=== PATIENT | male | born 1950 | race Caucasian/White ===

== ENCOUNTER 2017-02-06 22:13 | Inpatient (IN) | payer MEDICARE, MEDICAID ==
[~2017-02-06] VITALS: Ht 172.7 cm; Wt 59.5 kg
[~2017-02-06 22:13] MED LIST: ACET-784 PO; ACET-784 PR; AMLO-512 PO; ASPI81TA2 PO; B CO1CAP4 GT; BISA10S PR; BISA5TAB12 PO; COMP5 GT; DIPH25 PO; DOCU250C91 PO; FERR-72 PO; FINA5TAB41 PO; HYDR-3965 PO; LEVA1.25 IH; LORA0.5T2 PO; LOSA25TA21 PO; MIRT15 PO; MOM30 PO; OMEP20 PO; SIMV10TA6 PO; TERA2 PO; TOPI100 PO; TRAZ150 PO; ZOLP10 GT; [UNRECOGNIZED DRUG - CODE] GT; [UNRECOGNIZED DRUG - CODE] GT
[2017-02-06 22:32] LABS: GLUCOSE,POINT OF CARE 96 MG/DL (70-110)
[2017-02-06 23:00] LABS: BASOPHILS % (AUTO) 1.3 % (0.0-2.0); EOSINOPHILS % (AUTO) 5.1 % (1.0-6.0); HEMATOCRIT 37.6 % (41-53); HEMOGLOBIN 11.5 g/dL (13.5-17.5); LYMPHOCYTES # (AUTO) 0.7 K/uL (1.0-4.8); LYMPHOCYTES % (AUTO) 12.8 % (22.0-44.0); MEAN CORPUSCULAR HEMOGLOBIN 26.2 pg (26.0-34.0); MEAN CORPUSCULAR HGB CONC 30.5 G/dL (31.0-37.0); MEAN CORPUSCULAR VOLUME 86 fL (80-100); MONOCYTES # (AUTO) 0.4 K/uL (0.1-1.0); MONOCYTES % (AUTO) 6.7 % (2.0-9.0); NEUTROPHILS % (AUTO) 74.1 % (40.0-70.0); PLATELET COUNT (AUTO) 196 K/uL (150-450); RED BLOOD CELL COUNT(AUTO) 4.37 MIL/uL (4.50-5.90); RED CELL DISTRIBUTION WIDTH 18.5 % (11.5-14.5); WHITE BLOOD COUNT (AUTO) 5.5 K/uL (4.5-11.0)
[2017-02-06 23:14] LABS: RBC MORPHOLOGY COMMENT ABNORMAL RBC MORPH
[2017-02-06 23:19] LABS: LACTIC ACID 0.4 mmol/L (0.4-2.0)
[2017-02-06 23:20] LABS: B-TYPE NATRIURETIC PEPTIDE 126 pg/mL (0-100)
[2017-02-06 23:23] LABS: ANION GAP 9 mmol/L (8-16); CARBON DIOXIDE 29 mmol/L (22-29); CHLORIDE 96 mmol/L (98-107); CREATININE 4.52 mg/dL (0.60-1.30); GLOMERULAR FILTR. RATE CALC 13 mL/min (>60); POTASSIUM 4.5 mmol/L (3.5-5.1); SODIUM SERUM 134 mmol/L (136-145); UREA NITROGEN, BLOOD 79 mg/dL (7-18)
[2017-02-06 23:28] LABS: ALANINE AMINOTRANSFERASE 32 U/L (12-78); ALBUMIN 2.9 g/dL (3.4-5.0); ASPARTATE AMINOTRANSFERASE 28 U/L (15-37); BILIRUBIN,TOTAL 0.3 mg/dL (0.1-1.0); TOTAL PROTEIN, SERUM 7.1 g/dL (6.4-8.2)
[2017-02-07] MEDS ORDERED: ONDANSETRON HCL 4 MG/2 ML VIAL IVP PRN
[2017-02-07] MEDS ORDERED: ACETAMINOPHEN 325 MG TABLET PO PRN
[2017-02-07] MEDS ORDERED: 0.9% SODIUM CHLORIDE 10 ML SYRINGE IVP PRN
[2017-02-07] MEDS ORDERED: ASPIRIN 325 MG TABLET PO ONE (00:15)
[2017-02-07] MEDS ORDERED: NITROGLYCERIN 2% (1 GM=INCH) PACKET TP ONE (00:15)
[2017-02-07] MEDS ORDERED: LEVO75 PO (01:08)
[2017-02-07] MEDS ORDERED: LISI-661 PO (01:08)
[2017-02-07] MEDS ORDERED: ESCI10TA PO (01:08)
[2017-02-07] MEDS ORDERED: FOLI1 PO (01:08)
[2017-02-07] MEDS ORDERED: METO50 PO (01:08)
[2017-02-07] MEDS ORDERED: AUD NEB (01:08)
[2017-02-07] MEDS ORDERED: PANT40TA25 PO (01:08)
[2017-02-07] MEDS ORDERED: INSU100V SQ (01:08)
[2017-02-07] MEDS ORDERED: PEG15DRO4 OU (01:08)
[2017-02-07 05:11] LABS: BASOPHILS % (AUTO) 0.9 % (0.0-2.0); EOSINOPHILS % (AUTO) 3.7 % (1.0-6.0); HEMATOCRIT 34.3 % (41-53); HEMOGLOBIN 10.6 g/dL (13.5-17.5); LYMPHOCYTES # (AUTO) 0.8 K/uL (1.0-4.8); LYMPHOCYTES % (AUTO) 16.1 % (22.0-44.0); MEAN CORPUSCULAR HEMOGLOBIN 26.5 pg (26.0-34.0); MEAN CORPUSCULAR HGB CONC 30.9 G/dL (31.0-37.0); MEAN CORPUSCULAR VOLUME 86 fL (80-100); MONOCYTES # (AUTO) 0.4 K/uL (0.1-1.0); MONOCYTES % (AUTO) 8.2 % (2.0-9.0); NEUTROPHILS # (AUTO) 3.7 K/uL (1.8-7.7); NEUTROPHILS % (AUTO) 71.1 % (40.0-70.0); PLATELET COUNT (AUTO) 180 K/uL (150-450); RED CELL DISTRIBUTION WIDTH 18.8 % (11.5-14.5); WHITE BLOOD COUNT (AUTO) 5.2 K/uL (4.5-11.0)
[2017-02-07 05:25] LABS: ALBUMIN 2.7 g/dL (3.4-5.0); BILIRUBIN,TOTAL 0.3 mg/dL (0.1-1.0); CALCIUM, TOTAL 8.5 mg/dL (8.8-10.5); CREATININE 4.78 mg/dL (0.60-1.30); POTASSIUM 4.8 mmol/L (3.5-5.1); TOTAL PROTEIN, SERUM 6.6 g/dL (6.4-8.2)
[2017-02-07 05:28] LABS: RBC MORPHOLOGY COMMENT ABNORMAL RBC MORPH
[2017-02-07 12:22] LABS: GLUCOSE,POINT OF CARE 76 MG/DL (70-110)
[2017-02-07 20:07] LABS: GLUCOSE,POINT OF CARE 59 MG/DL (70-110)
[2017-02-07] MEDS ORDERED: DEXTROSE 50%-WATER 25 GM/50 ML SYRINGE IVP ONE (20:37)
[2017-02-07 21:13] VITALS: BP 150/62
[2017-02-08 00:07] VITALS: BP 128/67
[2017-02-08] MEDS ORDERED: ALBUTEROL SULFATE 2.5 MG/0.5 ML NEB SOLUTION NEB PRN (02:00)
[2017-02-08] MEDS ORDERED: ACETAMINOPHEN 325 MG TABLET PO PRN (02:00)
[2017-02-08] MEDS ORDERED: BISACODYL 10 MG RECTAL RECTAL SUPPOSITORY PR PRN ×2 (02:00→21:45)
[2017-02-08] MEDS ORDERED: MAGNESIUM HYDROXIDE SUSPENSION 30 ML UDCUP GT PRN (02:00)
[2017-02-08] MEDS ORDERED: DiphenhydrAMINE HCL 25 MG/10 ML ELIXIR UDCUP GT PRN ×2 (02:00→02:15)
[2017-02-08] MEDS ORDERED: BISACODYL 5 MG EC TABLET PO PRN (02:00)
[2017-02-08] MEDS ORDERED: DEXTRAN 70 0.1%/HYPROMELL 0.3% 0.9 ML OPHTHALMIC SOLUTION [PF] OU PRN (02:15)
[2017-02-08] MEDS ORDERED: DEXTROSE 50%-WATER 25 GM/50 ML SYRINGE IVP PRN (03:00)
[2017-02-08] MEDS ORDERED: INSULIN ASPART 100 UNITS/ML SQ PRN (03:00)
[2017-02-08] MEDS ORDERED: ACETAMINOPHEN 325 MG TABLET GT PRN (04:00)
[2017-02-08 04:07] VITALS: BP 126/71
[2017-02-08] MEDS ORDERED: LEVOTHYROXINE SODIUM 75 MCG TABLET GT SCH (06:30)
[2017-02-08] MEDS ORDERED: FERROUS SULFATE 300 MG/5 ML LIQUID UDCUP GT SCH (08:00)
[2017-02-08 08:21] VITALS: BP 142/76
[2017-02-08] MEDS ORDERED: [UNRECOGNIZED DRUG - OTHER] GT SCH (09:00)
[2017-02-08] MEDS ORDERED: METOPROLOL TARTRATE 50 MG TABLET GT SCH (09:00)
[2017-02-08] MEDS ORDERED: LANSOPRAZOLE 30 MG SOLUBLE TABLET GT SCH (09:00)
[2017-02-08] MEDS ORDERED: TOPIRAMATE 100 MG TABLET GT SCH (09:00)
[2017-02-08] MEDS ORDERED: LISINOPRIL 10 MG TABLET GT SCH (09:00)
[2017-02-08] MEDS ORDERED: FOLIC ACID 1 MG TABLET GT SCH (09:00)
[2017-02-08] MEDS ORDERED: WATER GT SCH (09:00)
[2017-02-08] MEDS ORDERED: VITAMIN B COMP/VIT C/FOLIC ACID CAPSULE GT SCH (09:00)
[2017-02-08] MEDS ORDERED: LORazepam 0.5 MG TABLET GT SCH (09:00)
[2017-02-08] MEDS ORDERED: DOCUSATE SODIUM 250 MG CAPSULE GT SCH (09:00)
[2017-02-08] MEDS ORDERED: ESCITALOPRAM OXALATE 10 MG TABLET GT SCH (09:00)
[2017-02-08 10:36] LABS: BASOPHILS # (AUTO) 0.05 K/uL (0.00-0.20); BASOPHILS % (AUTO) 1.2 % (0.0-2.0); EOSINOPHILS % (AUTO) 5.08 % (1.0-6.0); HEMATOCRIT 37.2 % (41-53); HEMOGLOBIN 11.7 g/dL (13.5-17.5); LYMPHOCYTES # (AUTO) 0.8 K/uL (1.0-4.8); LYMPHOCYTES % (AUTO) 19.7 % (22.0-44.0); MEAN CORPUSCULAR HEMOGLOBIN 27.1 pg (26.0-34.0); MEAN CORPUSCULAR HGB CONC 31.5 G/dL (31.0-37.0); MEAN CORPUSCULAR VOLUME 86 fL (80-100); MONOCYTES # (AUTO) 0.3 K/uL (0.1-1.0); MONOCYTES % (AUTO) 7.9 % (2.0-9.0); NEUTROPHILS # (AUTO) 2.6 K/uL (1.8-7.7); NEUTROPHILS % (AUTO) 66.2 % (40.0-70.0); PLATELET COUNT (AUTO) 196 K/uL (150-450); RED BLOOD CELL COUNT(AUTO) 4.32 MIL/uL (4.50-5.90); WHITE BLOOD COUNT (AUTO) 3.9 K/uL (4.5-11.0)
[2017-02-08 10:42] LABS: RBC MORPHOLOGY COMMENT ABNORMAL RBC MORPH
[2017-02-08 10:44] LABS: CALCIUM, TOTAL 8.8 mg/dL (8.8-10.5); CREATININE 5.51 mg/dL (0.60-1.30); POTASSIUM 4.7 mmol/L (3.5-5.1)
[2017-02-08 10:48] LABS: MAGNESIUM 3.6 mg/dL (1.80-2.40); PHOSPHORUS 7.5 mg/dL (2.5-4.9)
[2017-02-08 12:02] VITALS: BP 141/52
[2017-02-08] MEDS: HYDROCODONE/ACETAMINOPHEN 5-325 MG TABLET GT PRN ×2 (12:27→17:23)
[2017-02-08] MEDS ORDERED: ALBUMIN HUMAN 25%-12.5GM/50ML IV BOTTLE IV PRN (12:30)
[2017-02-08] MEDS ORDERED: MANNITOL 25%-12.5 GM/50 ML VIAL IVP PRN (12:30)
[2017-02-08 13:38] LABS: GLUCOSE,POINT OF CARE 188 MG/DL (70-110)
[2017-02-08 13:38] LABS: GLUCOSE COMMENT 1 Juice/Food/D50 Given; GLUCOSE,POINT OF CARE 62 MG/DL (70-110)
[2017-02-08 15:02] LABS: APPEARANCE,URINE CLEAR (CLEAR); GLUCOSE, URINE (UA) 100 mg/dL (NEGATIVE); KETONES,URINE NEGATIVE (NEGATIVE); LEUKOCYTE ESTERASE ,URINE SMALL (NEGATIVE); OCCULT BLOOD,URINE SMALL (NEGATIVE); PROTEIN,URINE SEE CONFIRM (NEGATIVE)
[2017-02-08 15:23] LABS: SQUAMOUS EPITHELIAL CELL,UR Rare /LPF (None Seen); SULFOSALICYLIC ACID,URINE 3+ (Negative)
[2017-02-08] MEDS ORDERED: HEPARIN SODIUM,PORCINE 1,000 UNITS/ML VIAL IVP ONE ×3 (16:45→18:02)
[2017-02-08 17:35] VITALS: BP 109/74
[2017-02-08 19:51] VITALS: BP 138/79
[2017-02-08] MEDS ORDERED: ZOLPIDEM TARTRATE 10 MG TABLET GT SCH (21:00)
[2017-02-09 12:49] LABS: GLUCOSE,POINT OF CARE 84 MG/DL (70-110)
== END 2017-02-08 21:40 | DRG 313 ==
LOC: EMS 22:15 → 5N 02-07 18:24 → UNDOADMIN 02-07 18:55 → 5N 02-07 20:10 → 5S 02-07 20:10 → 5N 02-08 05:31 → 5S 02-08 05:31 → UNDODISIN 02-08 21:40
PROVIDERS: ADMIT Hospitalist; ATTEND Hospitalist
PROC: 5A1D00Z (ICD-10-PCS; principal; 2017-02-08)
DX: R07.89 Other chest pain (principal); N18.6 End stage renal disease; I13.2 Hypertensive heart and chronic kidney disease with heart failure and with stage 5 chronic kidney disease, or end stage renal disease; I69.354 Hemiplegia and hemiparesis following cerebral infarction affecting left non-dominant side; N02.8 Recurrent and persistent hematuria with other morphologic changes; D63.1 Anemia in chronic kidney disease; E11.22 Type 2 diabetes mellitus with diabetic chronic kidney disease; E78.00 Pure hypercholesterolemia, unspecified; G40.909 Epilepsy, unspecified, not intractable, without status epilepticus; I25.10 Atherosclerotic heart disease of native coronary artery without angina pectoris; I25.5 Ischemic cardiomyopathy; I50.9 Heart failure, unspecified; F32.9 Major depressive disorder, single episode, unspecified; K21.9 Gastro-esophageal reflux disease without esophagitis; M06.9 Rheumatoid arthritis, unspecified; N31.9 Neuromuscular dysfunction of bladder, unspecified; N40.0 Benign prostatic hyperplasia without lower urinary tract symptoms; Z74.01 Bed confinement status; Z93.1 Gastrostomy status; Z83.3 Family history of diabetes mellitus; Z98.61 Coronary angioplasty status; Z99.2 Dependence on renal dialysis; Z88.2 Allergy status to sulfonamides; Z87.440 Personal history of urinary (tract) infections; Z79.899 Other long term (current) drug therapy; Z79.82 Long term (current) use of aspirin; Z79.1 Long term (current) use of non-steroidal anti-inflammatories (NSAID); Z82.49 Family history of ischemic heart disease and other diseases of the circulatory system
CPT/HCPCS: 82962; 83605; 83735; 84100; 87081; 87086; 87340; 90935; 93005; 99285; J1644

== ENCOUNTER 2017-07-08 18:58 | Inpatient (IN) | payer MEDICARE, OTHER ==
[~2017-07-08] VITALS: Ht 167.6 cm; Wt 63.6 kg
[~2017-07-08 18:58] MED LIST changes: -ACET-784 PO; -ACET-784 PR; -AMLO-512 PO; -ASPI81TA2 PO; +AUD NEB; -BISA10S PR; -BISA5TAB12 PO; -COMP5 GT; -DIPH25 PO; +EPOE4000 SQ; +ESCI10TA PO; -FINA5TAB41 PO; +FOLI1 PO; -HYDR-3965 PO; +HYDR-4061 PO; +INSU100V SQ; -LEVA1.25 IH; +LEVO75 PO; -LOSA25TA21 PO; +METO50 PO; -MIRT15 PO; -MOM30 PO; -OMEP20 PO; +PANT40TA25 PO; +PEG15DRO4 OU; -SIMV10TA6 PO; -TERA2 PO; -TOPI100 PO; +TOPI100T37 PO; -TRAZ150 PO; -ZOLP10 GT; +ZOLP10TA7 GT; -[UNRECOGNIZED DRUG - CODE] GT; -[UNRECOGNIZED DRUG - CODE] GT
[2017-07-08] MEDS ORDERED: OMEP20CA10 GT (19:09)
[2017-07-08 19:46] LABS: BASOPHILS # (AUTO) 0.03 K/uL (0.00-0.20); BASOPHILS % (AUTO) 0.7 % (0.0-2.0); EOSINOPHILS % (AUTO) 0.01 % (1.0-6.0); LYMPHOCYTES # (AUTO) 0.7 K/uL (1.0-4.8); LYMPHOCYTES % (AUTO) 17.8 % (22.0-44.0); MEAN CORPUSCULAR HEMOGLOBIN 26.4 pg (26.0-34.0); MEAN CORPUSCULAR HGB CONC 32.5 G/dL (31.0-37.0); MEAN CORPUSCULAR VOLUME 81 fL (80-100); MONOCYTES # (AUTO) 0.2 K/uL (0.1-1.0); MONOCYTES % (AUTO) 5.7 % (2.0-9.0); NEUTROPHILS # (AUTO) 3.1 K/uL (1.8-7.7); NEUTROPHILS % (AUTO) 75.8 % (40.0-70.0); PLATELET COUNT (AUTO) 255 K/uL (150-450); RED CELL DISTRIBUTION WIDTH 17.4 % (11.5-14.5)
[2017-07-08 19:49] LABS: GLUCOSE,POINT OF CARE 113 MG/DL (70-110)
[2017-07-08 19:58] LABS: PROTHROMBIN TIME 10.7 SEC (9.4-11.6)
[2017-07-08 20:08] LABS: HEMOGLOBIN 6.6 g/dL (13.5-17.5)
[2017-07-08 20:09] LABS: HEMATOCRIT 20.3 % (41-53)
[2017-07-08 20:35] LABS: B-TYPE NATRIURETIC PEPTIDE 726 pg/mL (0-100)
[2017-07-08 20:48] LABS: APPEARANCE,URINE CLOUDY (CLEAR); GLUCOSE, URINE (UA) NEGATIVE (NEGATIVE); KETONES,URINE NEGATIVE (NEGATIVE); LEUKOCYTE ESTERASE ,URINE MODERATE (NEGATIVE); OCCULT BLOOD,URINE LARGE (NEGATIVE); PH,URINE 7.5 (5.0-8.0); PROTEIN,URINE SEE CONFIRM (NEGATIVE)
[2017-07-08 20:49] LABS: ADD UA MICROSCOPIC YES
[2017-07-08 21:01] LABS: ANION GAP 15 mmol/L (8-16); CALCIUM, TOTAL 8.9 mg/dL (8.8-10.5); CARBON DIOXIDE 27 mmol/L (22-29); CHLORIDE 89 mmol/L (98-107); CREATININE 6.57 mg/dL (0.60-1.30); GLOMERULAR FILTR. RATE CALC 8 mL/min (>60); POTASSIUM 4.1 mmol/L (3.5-5.1); SODIUM SERUM 131 mmol/L (136-145)
[2017-07-08 21:04] LABS: ALANINE AMINOTRANSFERASE 47 U/L (12-78); ALBUMIN 2.7 g/dL (3.4-5.0); ASPARTATE AMINOTRANSFERASE 32 U/L (15-37); BILIRUBIN,TOTAL 0.3 mg/dL (0.1-1.0); CREATINE KINASE, TOTAL 43 U/L (39-308); TOTAL PROTEIN, SERUM 7.2 g/dL (6.4-8.2)
[2017-07-08 21:08] LABS: SULFOSALICYLIC ACID,URINE 2+ (Negative)
[2017-07-08 21:08] LABS: RBC MORPHOLOGY COMMENT ABNORMAL RBC MORPH
[2017-07-08 21:09] LABS: SQUAMOUS EPITHELIAL CELL,UR Rare /LPF (None Seen)
[2017-07-08 21:14] LABS: RBC,URINE >100 /HPF (0-2)
[2017-07-08 21:16] LABS: UREA NITROGEN, BLOOD 235 mg/dL (7-18)
[2017-07-08] MEDS ORDERED: ONDANSETRON HCL 4 MG/2 ML VIAL IVP ONE (21:30)
[2017-07-08] MEDS ORDERED: FAMOTIDINE 10 MG/ML 2 ML VIAL IVP ONE (21:30)
[2017-07-08] MEDS ORDERED: CefTRIAXone 1 GM/DEXTROSE 50 ML IV ONE (22:00)
[2017-07-08] MEDS ORDERED: 0.9% SODIUM CHLORIDE 10 ML SYRINGE IVP PRN ×2 (22:00→22:30)
[2017-07-08] MEDS ORDERED: HydrALAZINE HCL 20 MG/ML VIAL IVP PRN (22:15)
[2017-07-08] MEDS ORDERED: IPRATROPIUM BROMIDE 0.5 MG/2.5 ML NEB SOLUTION NEB PRN (22:30)
[2017-07-08] MEDS ORDERED: ALBUTEROL SULFATE 2.5 MG/0.5 ML NEB SOLUTION NEB PRN (22:30)
[2017-07-08] MEDS ORDERED: SODIUM CHLORIDE 0.9% 250 ML IV ONE (23:15)
[2017-07-08 23:25] VITALS: BP 180/87
[2017-07-08 23:45] VITALS: BP 175/85
[2017-07-09] VITALS (20 sets, daily range): BP systolic 112–197; BP diastolic 66–101
[2017-07-09] MEDS: HYDROCODONE/ACETAMINOPHEN 5-325 MG TABLET PO PRN ×3 (00:04→12:34)
[2017-07-09 06:49] LABS: HEMATOCRIT 27.6 % (41-53); HEMOGLOBIN 9.2 g/dL (13.5-17.5); MEAN CORPUSCULAR HEMOGLOBIN 27.8 pg (26.0-34.0); MEAN CORPUSCULAR HGB CONC 33.4 G/dL (31.0-37.0); MEAN CORPUSCULAR VOLUME 83 fL (80-100); PLATELET COUNT (AUTO) 240 K/uL (150-450); RED BLOOD CELL COUNT(AUTO) 3.31 MIL/uL (4.50-5.90); RED CELL DISTRIBUTION WIDTH 15.4 % (11.5-14.5); WHITE BLOOD COUNT (AUTO) 3.9 K/uL (4.5-11.0)
[2017-07-09 07:17] LABS: ALBUMIN 2.6 g/dL (3.4-5.0); BILIRUBIN,TOTAL 0.5 mg/dL (0.1-1.0); CALCIUM, TOTAL 8.6 mg/dL (8.8-10.5); CREATININE 6.52 mg/dL (0.60-1.30); PHOSPHORUS 7.7 mg/dL (2.5-4.9); POTASSIUM 4.5 mmol/L (3.5-5.1); TOTAL PROTEIN, SERUM 7.1 g/dL (6.4-8.2)
[2017-07-09 07:34] LABS: MAGNESIUM 4.3 mg/dL (1.80-2.40)
[2017-07-09] MEDS: LEVOTHYROXINE SODIUM 75 MCG TABLET PO SCH (08:19)
[2017-07-09] MEDS: FOLIC ACID 1 MG TABLET PO SCH (08:49)
[2017-07-09] MEDS: PANTOPRAZOLE SODIUM 40 MG/VIAL IVP SCH ×2 (08:49→20:31)
[2017-07-09] MEDS: METOPROLOL TARTRATE 50 MG TABLET PO SCH ×2 (08:50→20:31)
[2017-07-09] MEDS: ESCITALOPRAM OXALATE 10 MG TABLET PO SCH (08:50)
[2017-07-09] MEDS: VITAMIN B COMP/VIT C/FOLIC ACID CAPSULE PO SCH (08:50)
[2017-07-09 09:05] LABS: HEMATOCRIT 24.5 % (41-53); HEMOGLOBIN 8.2 g/dL (13.5-17.5)
[2017-07-09 09:37] LABS: LYMPHOCYTES % (MANUAL) 16 % (22-44); TOTAL CELLS COUNTED 100
[2017-07-09 09:39] LABS: RBC MORPHOLOGY COMMENT ABNORMAL R
[2017-07-09 12:46] LABS: VITAMIN B12 LEVEL 1252 pg/mL (211-911)
[2017-07-09] MEDS ORDERED: SODIUM CHLORIDE 0.9% 1,000 ML IV ONE (12:53)
[2017-07-09 15:40] LABS: HEMATOCRIT 28.1 % (41-53); HEMOGLOBIN 9.5 g/dL (13.5-17.5)
[2017-07-09] MEDS: ONDANSETRON HCL 4 MG/2 ML VIAL IVP PRN ×2 (16:00→20:45)
[2017-07-09] MEDS ORDERED: 0.9% SODIUM CHLORIDE 250 ML BAG IV ONE (17:54)
[2017-07-09] MEDS ORDERED: SODIUM BICARBONATE [ADULT] 8.4% 50 MEQ/50 ML SYRINGE IVP ONE (17:54)
[2017-07-09] MEDS ORDERED: EPINEPHrine 1:10,000 [1 MG/10 ML] SYRINGE IVP ONE (17:54)
[2017-07-09] MEDS ORDERED: DOPamine HCL/D5W 400 MG/250 ML IV BAG IV ONE (17:54)
[2017-07-09] MEDS ORDERED: ATROPINE SULFATE 0.1 MG/ML 10 ML SYRINGE IVP ONE (17:54)
[2017-07-09] MEDS: INSULIN ASPART 100 UNITS/ML SQ PRN ×2 (18:10→23:35)
[2017-07-09 19:57] LABS: GLUCOSE,POINT OF CARE 170 MG/DL (70-110)
[2017-07-09 21:17] LABS: HEMATOCRIT 30.3 % (41-53); HEMOGLOBIN 10.1 g/dL (13.5-17.5)
[2017-07-09 21:26] LABS: CALCIUM, TOTAL 9.3 mg/dL (8.8-10.5); CREATININE 4.19 mg/dL (0.60-1.30); POTASSIUM 3.8 mmol/L (3.5-5.1)
[2017-07-09] MEDS ORDERED: CefTRIAXone 1 GM/DEXTROSE 50 ML IV SCH (22:00)
[2017-07-09] MEDS ORDERED: SODIUM CHLORIDE 0.9% 250 ML IV ONE (23:07)
[2017-07-10 01:57] LABS: HEMATOCRIT 29.7 % (41-53); HEMOGLOBIN 9.9 g/dL (13.5-17.5)
[2017-07-10] MEDS: ONDANSETRON HCL 4 MG/2 ML VIAL IVP PRN (02:08)
[2017-07-10 04:42] VITALS: BP 160/70
[2017-07-10] MEDS: LEVOTHYROXINE SODIUM 75 MCG TABLET PO SCH (05:57)
[2017-07-10] MEDS: INSULIN ASPART 100 UNITS/ML SQ PRN ×2 (06:05→11:40)
[2017-07-10] MEDS: PANTOPRAZOLE SODIUM 40 MG/VIAL IVP SCH ×2 (07:55→21:41)
[2017-07-10] MEDS: FOLIC ACID 1 MG TABLET PO SCH (07:55)
[2017-07-10] MEDS: METOPROLOL TARTRATE 50 MG TABLET PO SCH ×2 (07:55→21:00)
[2017-07-10] MEDS: VITAMIN B COMP/VIT C/FOLIC ACID CAPSULE PO SCH (07:55)
[2017-07-10] MEDS: ESCITALOPRAM OXALATE 10 MG TABLET PO SCH (07:55)
[2017-07-10 08:07] VITALS: BP 162/98
[2017-07-10 08:09] LABS: HEMATOCRIT 29.3 % (41-53); HEMOGLOBIN 9.8 g/dL (13.5-17.5)
[2017-07-10] MEDS ORDERED: PIPERACILLIN SODIUM/TAZOBACTAM 0.75 GM in DEXTROSE 5%-WATER 50 ML IV PRN (09:45)
[2017-07-10 11:20] VITALS: BP 101/64
[2017-07-10] MEDS: DEXTROSE 5%-0.45% SODIUM CHL 1,000 ML IV SCH (11:21)
[2017-07-10] MEDS: PIPERACILLIN SODIUM/TAZOBACTAM 2.25 GM in DEXTROSE 5%-WATER 50 ML IV SCH ×2 (11:22→21:42)
[2017-07-10] MEDS: EPOETIN ALFA 10,000 UNITS/ML VIAL SQ SCH (11:36)
[2017-07-10] MEDS: HYDROCODONE/ACETAMINOPHEN 5-325 MG TABLET PO PRN (12:10)
[2017-07-10] MEDS: ACETAMINOPHEN 325 MG TABLET PO PRN (12:27)
[2017-07-10 13:06] LABS: HEMATOCRIT 30.2 % (41-53); HEMOGLOBIN 10.1 g/dL (13.5-17.5); MEAN CORPUSCULAR HEMOGLOBIN 27.8 pg (26.0-34.0); MEAN CORPUSCULAR HGB CONC 33.5 G/dL (31.0-37.0); MEAN CORPUSCULAR VOLUME 83 fL (80-100); PLATELET COUNT (AUTO) 248 K/uL (150-450); RED BLOOD CELL COUNT(AUTO) 3.64 MIL/uL (4.50-5.90); RED CELL DISTRIBUTION WIDTH 15.9 % (11.5-14.5); WHITE BLOOD COUNT (AUTO) 6.3 K/uL (4.5-11.0)
[2017-07-10 13:28] LABS: BAND NEUTROPHILS % (MANUAL) 41 % (1-5); LYMPHOCYTES % (MANUAL) 11 % (22-44); TOTAL CELLS COUNTED 100
[2017-07-10 13:29] LABS: RBC MORPHOLOGY COMMENT NORMAL RBC MORPH
[2017-07-10 13:42] LABS: APPEARANCE,URINE CLOUDY (CLEAR); GLUCOSE, URINE (UA) NEGATIVE (NEGATIVE); KETONES,URINE NEGATIVE (NEGATIVE); LEUKOCYTE ESTERASE ,URINE TRACE (NEGATIVE); OCCULT BLOOD,URINE SMALL (NEGATIVE); PROTEIN,URINE SEE CONFIRM (NEGATIVE)
[2017-07-10 13:55] LABS: ADD UA MICROSCOPIC YES; SULFOSALICYLIC ACID,URINE 3+ (Negative)
[2017-07-10 13:57] LABS: AMORPHOUS SEDIMENT,UR Few /LPF (None Seen)
[2017-07-10 15:39] VITALS: BP 125/70
[2017-07-10 18:09] LABS: ALLEN TEST, BLOOD GAS Positive; TEMPERATURE, FAHRENHEIT, BG 98.6 FAHREN (96.0-98.6)
[2017-07-10 18:10] LABS: ABG A-A DIFF O2 478.9 mmHg (10-20.0); ABG BASE EXCESS -12.1 mmol/L (-2.0-3.0); ABG HCO3 15.1 mmol/L (22.0-26.0); ABG OXYHEMOGLOBIN 97.9 % (94.0-100.0); ABG PCO2 56 mmHg (35-45); ABG PH 7.112 (7.35-7.450)
[2017-07-10 18:35] LABS: HEMATOCRIT 27.3 % (41-53); MEAN CORPUSCULAR HEMOGLOBIN 27.7 pg (26.0-34.0); MEAN CORPUSCULAR HGB CONC 32.8 G/dL (31.0-37.0); MEAN CORPUSCULAR VOLUME 84 fL (80-100); PLATELET COUNT (AUTO) 290 K/uL (150-450); RED BLOOD CELL COUNT(AUTO) 3.23 MIL/uL (4.50-5.90); RED CELL DISTRIBUTION WIDTH 16.4 % (11.5-14.5); WHITE BLOOD COUNT (AUTO) 12.9 K/uL (4.5-11.0)
[2017-07-10 18:48] LABS: CALCIUM, TOTAL 8.3 mg/dL (8.8-10.5); CREATININE 4.31 mg/dL (0.60-1.30); POTASSIUM 3.9 mmol/L (3.5-5.1)
[2017-07-10] MEDS: PHENYLEPHRINE 200 MG/D5%-WATER 250 ML IV PRN (19:00)
[2017-07-10 19:19] LABS: BAND NEUTROPHILS % (MANUAL) 54 % (1-5); LYMPHOCYTES % (MANUAL) 10 % (22-44); TOTAL CELLS COUNTED 100
[2017-07-10 19:31] LABS: GLUCOSE,POINT OF CARE 91 MG/DL (70-110)
[2017-07-10 19:58] LABS: ABG BASE EXCESS -7.3 mmol/L (-2.0-3.0); ABG OXYHEMOGLOBIN 97.8 % (94.0-100.0); ABG PCO2 37 mmHg (35-45); ABG PH 7.324 (7.35-7.450); TEMPERATURE, FAHRENHEIT, BG 98.6 FAHREN (96.0-98.6)
[2017-07-10 19:59] LABS: ABG A-A DIFF O2 532.4 mmHg (10-20.0)
[2017-07-10 20:00] VITALS: BP 122/76
[2017-07-10 20:13] LABS: GLUCOSE,POINT OF CARE 109 MG/DL (70-110)
[2017-07-10 20:14] LABS: GLUCOSE COMMENT 1 Received Meds; GLUCOSE,POINT OF CARE 150 MG/DL (70-110)
[2017-07-10 20:14] LABS: GLUCOSE COMMENT 1 Received Meds; GLUCOSE,POINT OF CARE 192 MG/DL (70-110)
[2017-07-10 20:14] LABS: GLUCOSE COMMENT 1 Received Meds; GLUCOSE,POINT OF CARE 240 MG/DL (70-110)
[2017-07-10] MEDS ORDERED: VANCOMYCIN HCL 1 GM/D5% WATER 200 ML IV ONE (20:15)
[2017-07-10] MEDS ORDERED: SODIUM CHLORIDE 0.9% 100 ML ONE (20:20)
[2017-07-10] MEDS ORDERED: IOVERSOL 350 MG/ML 100 ML VIAL ONE (20:20)
[2017-07-10] MEDS ORDERED: SODIUM CHLORIDE 0.9% 250 ML IV ONE (21:38)
[2017-07-11] VITALS: BP 123/44
[2017-07-11] MEDS: PROPOFOL 1000 MG/ISO-OSM 100 ML IV PRN ×2 (00:35→08:15)
[2017-07-11 01:22] LABS: GLUCOSE,POINT OF CARE 132 MG/DL (70-110)
[2017-07-11] MEDS: PIPERACILLIN SODIUM/TAZOBACTAM 2.25 GM in DEXTROSE 5%-WATER 50 ML IV SCH ×3 (01:37→17:39)
[2017-07-11 02:09] LABS: HEMATOCRIT 24.9 % (41-53); HEMOGLOBIN 8.3 g/dL (13.5-17.5)
[2017-07-11 04:00] VITALS: BP 113/37
[2017-07-11 04:56] LABS: HEMATOCRIT 25.3 % (41-53); HEMOGLOBIN 8.4 g/dL (13.5-17.5); MEAN CORPUSCULAR HEMOGLOBIN 28.1 pg (26.0-34.0); MEAN CORPUSCULAR HGB CONC 33.4 G/dL (31.0-37.0); MEAN CORPUSCULAR VOLUME 84 fL (80-100); PLATELET COUNT (AUTO) 211 K/uL (150-450); RED CELL DISTRIBUTION WIDTH 16.3 % (11.5-14.5); WHITE BLOOD COUNT (AUTO) 12.7 K/uL (4.5-11.0)
[2017-07-11 05:01] LABS: CALCIUM, TOTAL 8.4 mg/dL (8.8-10.5); CREATININE 4.65 mg/dL (0.60-1.30); MAGNESIUM 2.8 mg/dL (1.80-2.40); PHOSPHORUS 6.7 mg/dL (2.5-4.9); POTASSIUM 4.5 mmol/L (3.5-5.1); THYROID STIMULATING HORMONE 1.22 uIU/mL (0.36-3.74)
[2017-07-11] MEDS: LEVOTHYROXINE SODIUM 75 MCG TABLET PO SCH (05:50)
[2017-07-11 05:57] LABS: GLUCOSE,POINT OF CARE 102 MG/DL (70-110)
[2017-07-11 07:35] LABS: BAND NEUTROPHILS % (MANUAL) 47 % (1-5); LYMPHOCYTES % (MANUAL) 8 % (22-44); MYELOCYTES % 1 % (0-0); TOTAL CELLS COUNTED 100
[2017-07-11 08:00] VITALS: BP 97/51
[2017-07-11] MEDS: FOLIC ACID 1 MG TABLET PO SCH (08:16)
[2017-07-11] MEDS: VITAMIN B COMP/VIT C/FOLIC ACID CAPSULE PO SCH (08:16)
[2017-07-11] MEDS: PANTOPRAZOLE SODIUM 40 MG/VIAL IVP SCH ×2 (08:16→20:20)
[2017-07-11] MEDS: ACETAMINOPHEN 325 MG TABLET PO PRN ×2 (08:17→13:55)
[2017-07-11] MEDS: METOPROLOL TARTRATE 50 MG TABLET PO SCH ×2 (08:18→20:11)
[2017-07-11 08:40] LABS: ABG BASE EXCESS -5.1 mmol/L (-2.0-3.0); ABG HCO3 20.6 mmol/L (22.0-26.0); ABG PCO2 38 mmHg (35-45); ABG PH 7.351 (7.35-7.450); TEMPERATURE, FAHRENHEIT, BG 98.6 FAHREN (96.0-98.6)
[2017-07-11 08:41] LABS: ABG A-A DIFF O2 301.7 mmHg (10-20.0)
[2017-07-11 08:44] LABS: HEMATOCRIT 24.3 % (41-53); HEMOGLOBIN 8.2 g/dL (13.5-17.5)
[2017-07-11] MEDS: DEXTROSE 5%-0.45% SODIUM CHL 1,000 ML IV SCH (09:34)
[2017-07-11] MEDS: -ZOSYN NOTE- MISC SCH (09:40)
[2017-07-11 12:00] VITALS: BP 95/50
[2017-07-11 14:44] LABS: HEMATOCRIT 23.7 % (41-53)
[2017-07-11 16:00] VITALS: BP 90/31
[2017-07-11 17:58] LABS: GLUCOSE,POINT OF CARE 117 MG/DL (70-110)
[2017-07-11] MEDS ORDERED: VANCOMYCIN HCL 1 GM/D5% WATER 200 ML IV PRN (18:00)
[2017-07-11 18:08] LABS: GLUCOSE,POINT OF CARE 121 MG/DL (70-110)
[2017-07-11] MEDS: VASOPRESSIN 100 UNITS in DEXTROSE 5%-WATER 245 ML IV PRN (18:19)
[2017-07-11 19:54] LABS: HEMATOCRIT 24.9 % (41-53); HEMOGLOBIN 8.3 g/dL (13.5-17.5)
[2017-07-11 20:00] VITALS: BP 112/34
[2017-07-11] MEDS ORDERED: SODIUM CHLORIDE 0.9% 250 ML IV ONE (22:34)
[2017-07-11] MEDS ORDERED: SODIUM CHLORIDE 0.9% 500 ML IV ONE (22:34)
[2017-07-11] MEDS: INSULIN ASPART 100 UNITS/ML SQ PRN (23:26)
[2017-07-11] MEDS: PHENYLEPHRINE 200 MG/D5%-WATER 250 ML IV PRN (23:34)
[2017-07-12] VITALS (15 sets, daily range): BP systolic 93–118; BP diastolic 21–60
[2017-07-12] MEDS: PIPERACILLIN SODIUM/TAZOBACTAM 2.25 GM in DEXTROSE 5%-WATER 50 ML IV SCH ×3 (01:29→18:00)
[2017-07-12] MEDS: INSULIN ASPART 100 UNITS/ML SQ PRN ×3 (05:17→23:37)
[2017-07-12 05:28] LABS: HEMATOCRIT 24.4 % (41-53); MEAN CORPUSCULAR HGB CONC 32.8 G/dL (31.0-37.0); MEAN CORPUSCULAR VOLUME 85 fL (80-100); PLATELET COUNT (AUTO) 211 K/uL (150-450); RED BLOOD CELL COUNT(AUTO) 2.87 MIL/uL (4.50-5.90); RED CELL DISTRIBUTION WIDTH 16.8 % (11.5-14.5); WHITE BLOOD COUNT (AUTO) 26.9 K/uL (4.5-11.0)
[2017-07-12 05:45] LABS: CALCIUM, TOTAL 8.2 mg/dL (8.8-10.5); CREATININE 5.65 mg/dL (0.60-1.30); MAGNESIUM 3.1 mg/dL (1.80-2.40); POTASSIUM 4.7 mmol/L (3.5-5.1)
[2017-07-12] MEDS: LEVOTHYROXINE SODIUM 75 MCG TABLET PO SCH (05:59)
[2017-07-12] MEDS ORDERED: ATROPINE SULFATE 0.1 MG/ML 10 ML SYRINGE IVP ONE ×2 (06:12→06:15)
[2017-07-12 06:15] LABS: PHOSPHORUS 9.2 mg/dL (2.5-4.9)
[2017-07-12 06:39] LABS: BAND NEUTROPHILS % (MANUAL) 39 % (1-5); LYMPHOCYTES % (MANUAL) 6 % (22-44); TOTAL CELLS COUNTED 100
[2017-07-12 06:40] LABS: RBC MORPHOLOGY COMMENT NORMAL RBC MORPH
[2017-07-12 07:23] LABS: ABG BASE EXCESS -18.4 mmol/L (-2.0-3.0); ABG PCO2 45 mmHg (35-45)
[2017-07-12 07:24] LABS: ABG OXYHEMOGLOBIN 91.4 % (94.0-100.0)
[2017-07-12 07:25] LABS: ABG A-A DIFF O2 190.5 mmHg (10-20.0)
[2017-07-12] MEDS ORDERED: SODIUM BICARBONATE [ADULT] 8.4% 50 MEQ/50 ML SYRINGE IVP ONE ×3 (07:33→18:00)
[2017-07-12] MEDS ORDERED: VANCOMYCIN HCL 1 GM/D5% WATER 200 ML IV ONE (08:00)
[2017-07-12 08:23] LABS: GLUCOSE,POINT OF CARE 158 MG/DL (70-110)
[2017-07-12 08:27] LABS: GLUCOSE COMMENT 1 Received Meds; GLUCOSE,POINT OF CARE 199 MG/DL (70-110)
[2017-07-12] MEDS: FOLIC ACID 1 MG TABLET PO SCH (08:27)
[2017-07-12] MEDS: VITAMIN B COMP/VIT C/FOLIC ACID CAPSULE PO SCH (08:27)
[2017-07-12] MEDS: PANTOPRAZOLE SODIUM 40 MG/VIAL IVP SCH ×2 (08:27→20:13)
[2017-07-12] MEDS: SODIUM BICARBONATE 150 MEQ in DEXTROSE 5%-WATER 1,000 ML IV SCH (08:28)
[2017-07-12] MEDS: -ZOSYN NOTE- MISC SCH (09:00)
[2017-07-12] MEDS: METOPROLOL TARTRATE 50 MG TABLET PO SCH ×2 (09:00→19:42)
[2017-07-12 09:17] LABS: ABG PH 7.047 (7.35-7.450)
[2017-07-12] MEDS ORDERED: POTASSIUM CHLORIDE 20 MEQ in NXSTAGE RFP-402 K0/CA3 5,000 ML IRRIG PRN (09:45)
[2017-07-12] MEDS ORDERED: AMIODARONE HCL 360 MG in DEXTROSE 5%-WATER 242.8 ML IV ONE (12:20)
[2017-07-12] MEDS: NOREPINEPHRINE BITARTRATE 16 MG in DEXTROSE 5%-WATER 234 ML IV PRN (12:40)
[2017-07-12] MEDS: PHENYLEPHRINE HCL 800 MG in DEXTROSE 5%-WATER 170 ML IV PRN (12:41)
[2017-07-12 17:25] LABS: TEMPERATURE, FAHRENHEIT, BG 95.7 FAHREN (96.0-98.6)
[2017-07-12 17:26] LABS: ABG PCO2 38 mmHg (35-45)
[2017-07-12 17:27] LABS: ABG BASE EXCESS -15.9 mmol/L (-2.0-3.0); ABG HCO3 12.7 mmol/L (22.0-26.0); ABG OXYHEMOGLOBIN 94.4 % (94.0-100.0)
[2017-07-12 17:28] LABS: ABG A-A DIFF O2 182.9 mmHg (10-20.0)
[2017-07-12 17:34] LABS: CALCIUM, TOTAL 8.2 mg/dL (8.8-10.5); CREATININE 4.19 mg/dL (0.60-1.30); MAGNESIUM 2.8 mg/dL (1.80-2.40); PHOSPHORUS 8.1 mg/dL (2.5-4.9); POTASSIUM 4.5 mmol/L (3.5-5.1)
[2017-07-12] MEDS ORDERED: SODIUM CHLORIDE 0.9% 250 ML IV ONE (17:49)
[2017-07-12 18:03] LABS: ABG PH 7.151 (7.35-7.450)
[2017-07-12 18:12] LABS: HEMATOCRIT 23.2 % (41-53); HEMOGLOBIN 7.5 g/dL (13.5-17.5); MEAN CORPUSCULAR HEMOGLOBIN 27.5 pg (26.0-34.0); MEAN CORPUSCULAR HGB CONC 32.2 G/dL (31.0-37.0); MEAN CORPUSCULAR VOLUME 85 fL (80-100); PLATELET COUNT (AUTO) 189 K/uL (150-450); RED BLOOD CELL COUNT(AUTO) 2.71 MIL/uL (4.50-5.90); RED CELL DISTRIBUTION WIDTH 16.7 % (11.5-14.5); WHITE BLOOD COUNT (AUTO) 18.5 K/uL (4.5-11.0)
[2017-07-12] MEDS ORDERED: AMIODARONE HCL 540 MG in DEXTROSE 5%-WATER 239.2 ML IV ONE (18:30)
[2017-07-12 19:30] LABS: BAND NEUTROPHILS % (MANUAL) 22 % (1-5); LYMPHOCYTES % (MANUAL) 3 % (22-44); TOTAL CELLS COUNTED 100
[2017-07-12] MEDS ORDERED: SODIUM CHLORIDE 0.9% 500 ML IV ONE (20:38)
[2017-07-12] MEDS: VASOPRESSIN 100 UNITS in DEXTROSE 5%-WATER 245 ML IV PRN (21:07)
[2017-07-12 23:50] LABS: CALCIUM, TOTAL 8.2 mg/dL (8.8-10.5); CREATININE 3.51 mg/dL (0.60-1.30); POTASSIUM 4.7 mmol/L (3.5-5.1)
[2017-07-13] VITALS (9 sets, daily range): BP systolic 31–121; BP diastolic 27–60
[2017-07-13] MEDS: SODIUM BICARBONATE 150 MEQ in DEXTROSE 5%-WATER 1,000 ML IV SCH ×2 (00:21→17:37)
[2017-07-13] MEDS ORDERED: SODIUM CHLORIDE 0.9% 500 ML IV ONE (00:25)
[2017-07-13] MEDS: PIPERACILLIN SODIUM/TAZOBACTAM 2.25 GM in DEXTROSE 5%-WATER 50 ML IV SCH ×3 (01:59→17:39)
[2017-07-13] MEDS: INSULIN ASPART 100 UNITS/ML SQ PRN (04:54)
[2017-07-13 04:57] LABS: GLUCOSE,POINT OF CARE 125 MG/DL (70-110)
[2017-07-13 04:57] LABS: GLUCOSE,POINT OF CARE 115 MG/DL (70-110)
[2017-07-13 04:57] LABS: GLUCOSE COMMENT 1 Received Meds; GLUCOSE,POINT OF CARE 165 MG/DL (70-110)
[2017-07-13 04:57] LABS: GLUCOSE,POINT OF CARE 108 MG/DL (70-110)
[2017-07-13] MEDS: LEVOTHYROXINE SODIUM 75 MCG TABLET PO SCH (05:57)
[2017-07-13 06:22] LABS: HEMATOCRIT 34.8 % (41-53); HEMOGLOBIN 11.4 g/dL (13.5-17.5); MEAN CORPUSCULAR HEMOGLOBIN 28.6 pg (26.0-34.0); MEAN CORPUSCULAR HGB CONC 32.7 G/dL (31.0-37.0); MEAN CORPUSCULAR VOLUME 87 fL (80-100); PLATELET COUNT (AUTO) 143 K/uL (150-450); RED BLOOD CELL COUNT(AUTO) 3.98 MIL/uL (4.50-5.90); RED CELL DISTRIBUTION WIDTH 16.8 % (11.5-14.5); WHITE BLOOD COUNT (AUTO) 11.9 K/uL (4.5-11.0)
[2017-07-13 06:26] LABS: CALCIUM, TOTAL 8.2 mg/dL (8.8-10.5); CREATININE 2.97 mg/dL (0.60-1.30); MAGNESIUM 2.5 mg/dL (1.80-2.40); PHOSPHORUS 6.6 mg/dL (2.5-4.9)
[2017-07-13 07:06] LABS: POTASSIUM 4.5 mmol/L (3.5-5.1)
[2017-07-13] MEDS: METOPROLOL TARTRATE 50 MG TABLET PO SCH ×2 (07:31→21:00)
[2017-07-13 07:48] LABS: BAND NEUTROPHILS % (MANUAL) 15 % (1-5); LYMPHOCYTES % (MANUAL) 5 % (22-44); RBC MORPHOLOGY COMMENT NORMAL RBC MORPH; TOTAL CELLS COUNTED 100
[2017-07-13] MEDS: -ZOSYN NOTE- MISC SCH (09:00)
[2017-07-13] MEDS: FOLIC ACID 1 MG TABLET PO SCH (09:47)
[2017-07-13] MEDS: VITAMIN B COMP/VIT C/FOLIC ACID CAPSULE PO SCH (09:47)
[2017-07-13] MEDS: EPOETIN ALFA 10,000 UNITS/ML VIAL SQ SCH (09:47)
[2017-07-13] MEDS: PANTOPRAZOLE SODIUM 40 MG/VIAL IVP SCH ×2 (09:47→21:10)
[2017-07-13 11:09] LABS: ABG A-A DIFF O2 205.7 mmHg (10-20.0); ABG BASE EXCESS -19.8 mmol/L (-2.0-3.0); ABG HCO3 10.2 mmol/L (22.0-26.0); ABG OXYHEMOGLOBIN 90.3 % (94.0-100.0); ABG PCO2 40 mmHg (35-45)
[2017-07-13 11:10] LABS: ABG PH 7.044 (7.35-7.450)
[2017-07-13] MEDS: DEXTROSE 50%-WATER 25 GM/50 ML SYRINGE IVP PRN ×3 (12:00→21:10)
[2017-07-13] MEDS ORDERED: AMIODARONE HCL 750 MG in DEXTROSE 5%-WATER 485 ML IV SCH (12:30)
[2017-07-13 13:42] LABS: GLUCOSE COMMENT 1 Juice/Food/D50 Given; GLUCOSE,POINT OF CARE 32 MG/DL (70-110)
[2017-07-13] MEDS ORDERED: SODIUM BICARBONATE [ADULT] 8.4% 50 MEQ/50 ML SYRINGE IVP ONE ×2 (14:43→14:45)
[2017-07-13] MEDS: NOREPINEPHRINE BITARTRATE 16 MG in DEXTROSE 5%-WATER 234 ML IV PRN (17:39)
[2017-07-13] MEDS ORDERED: VASOPRESSIN 40 UNITS in DEXTROSE 5%-WATER 98 ML IV PRN (18:00)
[2017-07-14] VITALS: BP 25/23
[2017-07-14] MEDS: DEXTROSE 50%-WATER 25 GM/50 ML SYRINGE IVP PRN ×3 (00:43→12:51)
[2017-07-14] MEDS: PIPERACILLIN SODIUM/TAZOBACTAM 2.25 GM in DEXTROSE 5%-WATER 50 ML IV SCH ×2 (01:08→08:57)
[2017-07-14 02:27] LABS: GLUCOSE COMMENT 1 Received Meds; GLUCOSE,POINT OF CARE 37 MG/DL (70-110)
[2017-07-14 02:27] LABS: GLUCOSE,POINT OF CARE 106 MG/DL (70-110)
[2017-07-14 02:27] LABS: GLUCOSE COMMENT 1 Received Meds; GLUCOSE,POINT OF CARE 26 MG/DL (70-110)
[2017-07-14 02:27] LABS: GLUCOSE,POINT OF CARE 105 MG/DL (70-110)
[2017-07-14] MEDS ORDERED: SODIUM CHLORIDE 0.9% 500 ML IV ONE (03:04)
[2017-07-14 04:00] VITALS: BP 34/19
[2017-07-14] MEDS: NOREPINEPHRINE BITARTRATE 16 MG in DEXTROSE 5%-WATER 234 ML IV PRN (04:19)
[2017-07-14] MEDS: PHENYLEPHRINE HCL 800 MG in DEXTROSE 5%-WATER 170 ML IV PRN (04:20)
[2017-07-14] MEDS ORDERED: SODIUM CHLORIDE 0.9% 250 ML IV ONE (05:04)
[2017-07-14] MEDS: LEVOTHYROXINE SODIUM 75 MCG TABLET PO SCH (05:43)
[2017-07-14] MEDS ORDERED: VANCOMYCIN HCL 1 GM/D5% WATER 200 ML IV ONE ×2 (06:00→12:00)
[2017-07-14 06:03] LABS: CALCIUM, TOTAL 7.8 mg/dL (8.8-10.5); CREATININE 3.15 mg/dL (0.60-1.30); POTASSIUM 5.2 mmol/L (3.5-5.1)
[2017-07-14 06:17] LABS: GLUCOSE,POINT OF CARE 114 MG/DL (70-110)
[2017-07-14] MEDS: METOPROLOL TARTRATE 50 MG TABLET PO SCH (07:41)
[2017-07-14 08:00] VITALS: BP 69/19
[2017-07-14] MEDS: PANTOPRAZOLE SODIUM 40 MG/VIAL IVP SCH (08:56)
[2017-07-14] MEDS: -ZOSYN NOTE- MISC SCH (08:56)
[2017-07-14] MEDS: SODIUM BICARBONATE 150 MEQ in DEXTROSE 5%-WATER 1,000 ML IV SCH (08:57)
[2017-07-14] MEDS: VITAMIN B COMP/VIT C/FOLIC ACID CAPSULE PO SCH (08:57)
[2017-07-14] MEDS: FOLIC ACID 1 MG TABLET PO SCH (08:57)
[2017-07-14 11:37] LABS: GLUCOSE COMMENT 1 Juice/Food/D50 Given; GLUCOSE,POINT OF CARE 67 MG/DL (70-110)
[2017-07-14 12:00] VITALS: BP 49/13
[2017-07-14 16:08] LABS: GLUCOSE COMMENT 1 Repeated; GLUCOSE,POINT OF CARE < 10 MG/DL (70-110)
== END 2017-07-14 18:35 | disposition expired | DRG 871 ==
LOC: EMS 19:02 → 5S 07-09 08:37 → ICU 07-10 17:45
PROVIDERS: ADMIT Internal Medicine; ATTEND Internal Medicine
PROC: 30233N1 Transfusion of Nonautologous Red Blood Cells into Peripheral Vein, Percutaneous Approach (ICD-10-PCS; 2017-07-09)
PROC: 5A1945Z Respiratory Ventilation, 24-96 Consecutive Hours (ICD-10-PCS; principal; 2017-07-10)
PROC: 0BH17EZ Insertion of Endotracheal Airway into Trachea, Via Natural or Artificial Opening (ICD-10-PCS; 2017-07-10)
PROC: 02HV33Z Insertion of Infusion Device into Superior Vena Cava, Percutaneous Approach (ICD-10-PCS; 2017-07-10)
PROC: B548ZZA Ultrasonography of Superior Vena Cava, Guidance (ICD-10-PCS; 2017-07-10)
PROC: 04HL33Z Insertion of Infusion Device into Left Femoral Artery, Percutaneous Approach (ICD-10-PCS; 2017-07-10)
DX: A41.9 Sepsis, unspecified organism (principal); N18.6 End stage renal disease; J96.00 Acute respiratory failure, unspecified whether with hypoxia or hypercapnia; E43 Unspecified severe protein-calorie malnutrition; G93.1 Anoxic brain damage, not elsewhere classified; G93.41 Metabolic encephalopathy; I13.2 Hypertensive heart and chronic kidney disease with heart failure and with stage 5 chronic kidney disease, or end stage renal disease; J18.9 Pneumonia, unspecified organism; E11.22 Type 2 diabetes mellitus with diabetic chronic kidney disease; I13.11 Hypertensive heart and chronic kidney disease without heart failure, with stage 5 chronic kidney disease, or end stage renal disease; N39.0 Urinary tract infection, site not specified; K92.2 Gastrointestinal hemorrhage, unspecified; I69.351 Hemiplegia and hemiparesis following cerebral infarction affecting right dominant side; I46.9 Cardiac arrest, cause unspecified; I48.91 Unspecified atrial fibrillation; D63.1 Anemia in chronic kidney disease; E03.9 Hypothyroidism, unspecified; E78.5 Hyperlipidemia, unspecified; G40.909 Epilepsy, unspecified, not intractable, without status epilepticus; I25.10 Atherosclerotic heart disease of native coronary artery without angina pectoris; B96.5 Pseudomonas (aeruginosa) (mallei) (pseudomallei) as the cause of diseases classified elsewhere; B96.20 Unspecified Escherichia coli [E. coli] as the cause of diseases classified elsewhere; I50.9 Heart failure, unspecified; K21.9 Gastro-esophageal reflux disease without esophagitis; N40.0 Benign prostatic hyperplasia without lower urinary tract symptoms; R62.7 Adult failure to thrive; Z66 Do not resuscitate; Z82.49 Family history of ischemic heart disease and other diseases of the circulatory system; Z83.3 Family history of diabetes mellitus; Z87.11 Personal history of peptic ulcer disease; Z93.0 Tracheostomy status; Z88.2 Allergy status to sulfonamides; Z93.1 Gastrostomy status; Z95.5 Presence of coronary angioplasty implant and graft; Z99.2 Dependence on renal dialysis
CPT/HCPCS: 71275; 82270; 82271; 82607; 82728; 82746; 82805; 82962; 83036; 83540; 83550; 83735; 84100; 84439; 84443; 85007; 85014; 85018; 86850; 86900; 86901; 86920; 87040; 87070; 87081; 87086; 87106; 87205; 87340; 90935; 90947; 92950; 93005; 93308; 94002; 94003; 94640; 94799; 96365; 96375; 99285; C9113; J0171; J0282; J0360; J0461; J0696; J0885; J1265; J2370; J2405; J2543; J2704; J3370; J3480; J3490; J7030; J7040; J7050; J7060; P9016